=== PATIENT | female | born 1995 | race Caucasian/White ===

== ENCOUNTER 2017-05-02 13:55 | Emergency (ER) | payer OTHER ==
[2017-05-02 14:42] LABS: microscopic required? YES; urine erythrocyte NEGATIVE (NEGATIVE)
[2017-05-02 15:11] VITALS: BP 111/55
== END 2017-05-02 15:11 | disposition home or self-care (01) ==
LOC: ED 13:55
PROVIDERS: Emergency Medicine
DX: O26.891 Other specified pregnancy related conditions, first trimester (principal); Z3A.15 15 weeks gestation of pregnancy